=== PATIENT | male | born 1970 | race Caucasian/White ===

== ENCOUNTER → 2019-11-14 10:00 | Outpatient (BNVA) | payer MEDICARE, MEDICAID, SELFPAY | PROVIDERS: Family Provider Family Medicine; PCP Nurse Practitioner Family; Visit Provider Nurse Practitioner Family | DX: R56.9 Unspecified convulsions (principal); Z13.29 Encounter for screening for other suspected endocrine disorder; Z87.898 Personal history of other specified conditions; F33.1 Major depressive disorder, recurrent, moderate; Z79.899 Other long term (current) drug therapy | CPT/HCPCS: 80053; 80061; 80156; 80177; 84439; 84443 ==

== ENCOUNTER → 2020-10-17 08:44 | Outpatient (BNVA) | payer MEDICARE, MEDICAID, SELFPAY | PROVIDERS: Family Provider Family Medicine; PCP Nurse Practitioner Family; Visit Provider Nurse Practitioner Family | DX: R56.9 Unspecified convulsions (principal); F41.9 Anxiety disorder, unspecified; F32.9 Major depressive disorder, single episode, unspecified; Z79.899 Other long term (current) drug therapy | CPT/HCPCS: 80053; 80061; 80156; 80177 ==

== ENCOUNTER → 2021-11-24 09:52 | Outpatient (BNVA) | payer MEDICARE, MEDICAID, SELFPAY | PROVIDERS: Family Provider Family Medicine; PCP Nurse Practitioner Family; Visit Provider Nurse Practitioner Family | DX: R56.9 Unspecified convulsions (principal); E78.6 Lipoprotein deficiency; F41.9 Anxiety disorder, unspecified; F32.9 Major depressive disorder, single episode, unspecified; Z13.29 Encounter for screening for other suspected endocrine disorder; Z68.26 Body mass index [BMI] 26.0-26.9, adult; Z68.24 Body mass index [BMI] 24.0-24.9, adult | CPT/HCPCS: 80053; 80061; 80156; 80177; 84443 ==

== ENCOUNTER → 2022-08-04 09:51 | Outpatient (BNVA) | payer MEDICARE, MEDICAID, SELFPAY | PROVIDERS: Family Provider Family Medicine; PCP Nurse Practitioner Family; Visit Provider Nurse Practitioner Family | DX: R56.9 Unspecified convulsions (principal); F41.9 Anxiety disorder, unspecified; F32.9 Major depressive disorder, single episode, unspecified; Z68.26 Body mass index [BMI] 26.0-26.9, adult | CPT/HCPCS: 80156; 80177 ==

== ENCOUNTER → 2022-08-11 09:00 | Outpatient (BNVA) | payer MEDICARE, MEDICAID, SELFPAY | PROVIDERS: Family Provider Family Medicine; PCP Nurse Practitioner Family; Visit Provider Nurse Practitioner Family | DX: E78.6 Lipoprotein deficiency (principal); R56.9 Unspecified convulsions | CPT/HCPCS: 80053; 80061 ==

== ENCOUNTER → 2022-12-02 15:20 | Outpatient (BNVA) | payer MEDICARE, MEDICAID, SELFPAY | PROVIDERS: Family Provider Family Medicine; PCP Nurse Practitioner Family; Visit Provider Nurse Practitioner Family | DX: Z51.81 Encounter for therapeutic drug level monitoring (principal); Z79.899 Other long term (current) drug therapy; R56.9 Unspecified convulsions; R74.8 Abnormal levels of other serum enzymes; Z13.29 Encounter for screening for other suspected endocrine disorder | CPT/HCPCS: 80053; 80156; 80177 ==

== ENCOUNTER 2023-02-21 09:32 | Emergency (ER) | payer MEDICARE, MEDICAID, SELFPAY ==
[2023-02-21 09:42] VITALS: BP 94/72; PULSE 126; RESP 16; TEMP 36.6; O2SAT 98; BMI 25.4
[2023-02-21 09:49] VITALS: PULSE 120; RESP 20; O2SAT 98
--- NOTE | 2023-02-21 09:49 | USR_ITS ---
PROCEDURE INFORMATION: Exam: US Duplex Left Lower Extremity Veins, Limited Exam date and time: 02/21/2023 10:14 AM Age: 52 years old Clinical indication: Pain; Leg, lower; Left; Additional info: Leg pain and swelling TECHNIQUE: Imaging protocol: Real-time duplex ultrasound of the left extremity with 2-D courtney scale, color Doppler flow and spectral waveform analysis including responses to compression and other maneuvers (when performed) with image documentation. Limited exam focused on the left lower extremity veins. Total images: [id number] COMPARISON: No relevant prior studies available. FINDINGS: Left deep veins: Echogenic thrombus and noncompressible left common femoral vein and deep femoral vein. No venous flow detected by color Doppler. Findings consistent with deep venous thrombosis. Normal mid to distal left femoral vein with normal compressibility and venous flow demonstrated. Normal compressibility and venous flow demonstrated within left popliteal vein. Normal compressibility and venous flow noted in the left peroneal vein and posterior tibial vein. Superficial veins: Unremarkable. Saphenofemoral junction is patent without thrombus. Soft tissues: Minimal subcutaneous edema noted within the calf. Other findings: Noncompressibility of the greater saphenous vein in the groin suggesting superficial venous thrombosis present as well. US/[place] [id number] IMPRESSION: 1. Echogenic thrombus and noncompressible left common femoral vein and deep femoral vein. No venous flow detected by color Doppler. Findings consistent with deep venous thrombosis. 2. Noncompressibility of the greater saphenous vein in the groin suggesting superficial venous thrombosis present as well.
--- NOTE | 2023-02-21 09:49 | CTR_ITS ---
PROCEDURE INFORMATION: Exam: CT Lumbar Spine Without Contrast Exam date and time: 02/21/2023 10:50 AM Age: 52 years old Clinical indication: Injury or trauma; Fall; Blunt trauma (contusions or hematomas) TECHNIQUE: Imaging protocol: Computed tomography of the lumbar spine without contrast. Radiation optimization: All CT scans at this facility use at least one of these dose optimization techniques: automated exposure control; mA and/or kV adjustment per patient size (includes targeted exams where dose is matched to clinical indication); or iterative reconstruction. REPORTING DATA: Count of CT and Cardiac NM exams in prior 12 months: This patient has received 0 known CTs and 0 known cardiac nuclear medicine studies in the 12 months prior to the current study. COMPARISON: No relevant prior studies available. RADIATION DOSE METRICS: Total DLP (mGy-cm): 531.05 FINDINGS: Bones/joints: There is bilateral L3 and L5 spondylolysis and a slight L5-S1 spondylolisthesis measuring 4 mm. There is no evidence for acute fracture in the lumbar spine. There is mild lumbar spondylosis noted with disc bulging, facet arthropathy and ligamentous thickening but no significant canal narrowing. There is moderate neural foraminal stenosis at L3-L4, L4-L5 and moderate to severe stenosis at L5-S1. Vasculature: There is an infrarenal inferior vena cava filter noted. Patchy density is noted within the inferior vena cava above and below the filter extending into the iliac veins with retroperitoneal inflammatory change surrounding. Soft tissues: Unremarkable. CT/CT lumbar spine wo con* [id number] IMPRESSION: No evidence for acute lumbar fracture. L3 and L5 spondylolysis. Grade 1 L5-S1 spondylolisthesis. Lumbar spondylosis. Suspect cavoiliac thrombus. Inferior vena cava filter in place. Evaluation is limited on this noncontrast CT. Consider CT venogram to further assess.
--- NOTE | 2023-02-21 09:52 | CTR_ITS ---
PROCEDURE INFORMATION: Exam: CT Head Without Contrast Exam date and time: 02/21/2023 10:57 AM Age: 52 years old Clinical indication: Injury or trauma; Fall; Blunt trauma (contusions or hematomas) TECHNIQUE: Imaging protocol: Computed tomography of the head without contrast. Total images: 293 Radiation optimization: All CT scans at this facility use at least one of these dose optimization techniques: automated exposure control; mA and/or kV adjustment per patient size (includes targeted exams where dose is matched to clinical indication); or iterative reconstruction. REPORTING DATA: Count of CT and Cardiac NM exams in prior 12 months: This patient has received 0 known CTs and 0 known cardiac nuclear medicine studies in the 12 months prior to the current study. COMPARISON: No relevant prior studies available. RADIATION DOSE METRICS: Total DLP (mGy-cm): 1029.48 FINDINGS: Brain: Normal. No hemorrhage. Unremarkable white matter. No mass effect. Cerebral ventricles: No ventriculomegaly. Paranasal sinuses: Visualized sinuses are unremarkable. No fluid levels. Mastoid air cells: Visualized mastoid air cells are well aerated. Bones/joints: Unremarkable. No acute fracture. Soft tissues: Unremarkable. CT/CT head wo con* [id number] IMPRESSION: No acute intracranial pathology detected.
--- NOTE | 2023-02-21 09:52 | ECG_ITS ---
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 Measurements Intervals [place] Rate: 138 P: 60 NH: 146 QRS: 59 QRSD: 86 T: 50 QT: 261 QTc: 396 Interpretive Statements SINUS TACHYCARDIA POSSIBLE RIGHT VENTRICULAR CONDUCTION DELAY [RSR (QR) IN V1/V2] No previous ECG available for comparison Electronically Signed On 02-21-2023 22:52:41 CDT by Camden Hunt M.D. [email or web address]Artist Growthbolivar medical centerFree Flow Poweruniversity hospitals parma medical centerPruffi/store/OM/[id number]
--- NOTE | 2023-02-21 09:52 | XRR_ITS ---
PROCEDURE INFORMATION: Exam: XR Chest Exam date and time: 02/21/2023 11:24 AM Age: 52 years old Clinical indication: Cough and dyspnea; Smoker's cough; Additional info: Dyspnea/cough TECHNIQUE: Imaging protocol: Radiologic exam of the chest. Views: 1 view. Total images: 3 COMPARISON: No relevant prior studies available. FINDINGS: Lungs: Unremarkable. No consolidation. Pleural spaces: Unremarkable. No pleural effusion. No pneumothorax. Heart/Mediastinum: Unremarkable. No cardiomegaly. Bones/joints: Unremarkable. XR/XR chest 1V portable [id number] IMPRESSION: No acute findings.
--- NOTE | 2023-02-21 10:02 | W.ED.EXTPRO ---
HPI - Extremity Problem General: Chief complaint: Extremity Problem,Nontraumatic Stated complaint: fall, left leg injury Time Seen by Provider: 02/21/23 09:34 Source: patient Mode of arrival: ambulatory History of Present Illness: 52-year-old male presents to the emergency room he slipped and fell while in the shower 2 days ago he hit his head according to his mother who is here with him although he does not seem to remember this and he made no mention of it to me that his mother told me later. When he fell in the shower he injured his back and has had swelling in his legs since then and worsening pain radiating down the left leg. He has not had any particular shortness of breath or orthopnea. He denies any chest pain. He has had previous traumatic brain injuries. Swelling in his leg has persisted began later the same day after he had fallen he has no history of DVTs he is not on any anticoagulants. MD Complaint: extremity pain and extremity swelling Onset (ago): day(s) (2) Pain Consistency: constant Location: left and lower extremity Quality: aching Radiation: distal Relieving factors: nothing Exacerbating factors: nothing Associated symptoms: Deny chest pain or fever(s) Review of Systems Const: Denies: fever(s), chills, fatigue or malaise Card: Reports: edema and swelling of feet/ankles; Denies: chest pain, dyspnea on exertion or orthopnea Resp: Denies: dyspnea GI: Denies: abdominal pain : Denies: dysuria, urinary frequency or urinary urgency Musc: Reports: back pain (Chronic), extremity pain and extremity swelling; Denies: neck pain Skin/Breast: Denies: pruritus Neuro: Denies: headache(s) PFSH ED PFSH: Social History Smoking and tobacco status: current every day smoker e-cigarettes E-Cigarette Details: vaporizer device E-cig/vape details: 3 mg Alcohol intake: never Substance/Drug Use: never Physical Exam Const: GENERAL APPEARANCE: cooperative and comfortable ORIENTATION/CONSCIOUSNESS: Yes awake, Yes oriented to person, Yes oriented to place and Yes oriented to time HENMT: COMMON NORMALS: normocephalic, atraumatic and hearing grossly normal bilaterally HEAD & SCALP: normocephalic and atraumatic Resp: COMMON NORMALS: normal respiratory effort, No retractions, No use of accessory muscles and clear to auscultation bilaterally AUSCULTATION: clear to auscultation bilaterally Cardio: COMMON NORMALS: regular rate, regular rhythm and No murmurs present (Cardio) RATE: regular rate RHYTHM: regular rhythm GI: COMMON NORMALS: Soft to palpation and No hepatosplenomegaly present AUSCULTATION: Yes normoactive bowel sounds PALPATION: Yes Soft to palpation, No Tenderness to palpation present (GI), No Guarding due to palpation present (GI) and Yes No hepatosplenomegaly present Back/Pelvis: OTHER: No pain with palpation along lower spine Extremity: COMMON NORMALS: normal to inspection and capillary refill normal OTHER: Mild left calf tenderness +2 edema of the left lower extremity to the distal thigh. Dorsum plantar flex strength 5 of 5, extension at the knee strength 5 of 5 Neuro: SENSORIUM/ORIENTATION: Yes oriented to person, Yes oriented to place and Yes oriented to time DEEP TENDON REFLEXES: Right patellar reflex intensity grade: 0, Left patellar reflex intensity grade: 0, Right ankle reflex intensity grade: 1+ and Left ankle reflex intensity grade: 1+ OTHER: Straight leg raising negative Skin: COMMON NORMALS: no rashes or lesions noted GENERAL SKIN EXAM: no rashes or lesions noted Course Vital Signs: Vital signs: Vital Signs Temperature 97.9 F 02/21/23 09:42 Pulse Rate 93 02/21/23 12:06 Respiratory Rate 16 02/21/23 12:06 Blood Pressure 108/91 02/21/23 12:06 Pulse Oximetry 96 02/21/23 12:06 Oxygen Delivery Me thod Room Air 02/21/23 09:49 MDM - Extremity (Nontraumatic) Medical Decision Making Venous duplex lower extremity shows a DVT which clinically correlates with what exam is showing. He is not tachycardic and is not hypoxic. He does have an inferior vena cava filter that was placed after his previous trauma episodes is not been on any anticoagulation up till now. CT of his lumbar spine did not show any fractures that was done because of his complaint of back pain after the fall but there was a concern based on the CT of thrombus extending into the inferior vena cava, radiology recommended a venogram. I discussed with the patient he adamantly refuses. It actually took quite a bit of discussion to get the patient to agree to take the anticoagulation. His mother and father with him they assisted in trying to convince him of both the treatment and the testing but he opposed it. Because of his previous traumatic brain injuries he does have a conservator. The mother asked that I talk to her I did talk to her on the phone. At this point recommend that they just go with the anticoagulation until he agrees to further testing. His kidney function is a little bit above what it has been in the past. The treatment at this point would be anticoagulation he is not showing any signs of total inferior vena cava occlusion. If that were to occur would have to hopefully get him to reconsider his choices. At that point we may have to consider referral for possible mechanical thrombectomy however this is very invasive and would have significant risks associated with that. Patient does not want to undergo invasive procedures or take significant risks at this point. Advised the conservator I think since he is agreeing to take the Eliquis we should just proceed with that for now unless his symptoms change. Did discuss with the patient that if things worsen significantly we may have limited options at that time he expresses understanding of this and still does not wish to have any further testing done. Encouraged him that if he does change his mind he is welcome to return and we can reevaluate at any point. I did discuss with Dr. Watkins who is on-call for vascular he concurs with the treatment plan for this patient given the circumstances. Medical Records I reviewed the patient's medical records. Lab Data I reviewed the patient's lab results. 02/21/23 10:06 02/21/23 10:06 Radiology Impressions Lumbar Spine CT 02/21/23 09:49 IMPRESSION: No evidence for acute lumbar fracture. L3 and L5 spondylolysis. Grade 1 L5-S1 spondylolisthesis. Lumbar spondylosis. Suspect cavoiliac thrombus. Inferior vena cava filter in place. Evaluation is limited on this noncontrast CT. Consider CT venogram to further assess. Venous Duplex 02/21/23 09:49 IMPRESSION: 1. Echogenic thrombus and noncompressible left common femoral vein and deep femoral vein. No venous flow detected by color Doppler. Findings consistent with deep venous thrombosis. 2. Noncompressibility of the greater saphenous vein in the groin suggesting superficial venous thrombosis present as well. ADDENDUM: 02/21/23 4790 THIS REPORT CONTAINS FINDINGS THAT MAY BE CRITICAL TO PATIENT CARE. The findings were verbally communicated via telephone conference at 10:48 AM CDT on 02/21/2023 with JOSSE CALDWELL. The findings were acknowledged and understood. Chest X-Ray 02/21/23 09:52 IMPRESSION: No acute findings. Head CT 02/21/23 09:52 IMPRESSION: No acute intracranial pathology detected. Laboratory Results WBC 15.77 10^3/uL (3.29-11.43) H 02/21/23 10:06 RBC 4.47 10^6/uL (3.85-5.65) 02/21/23 10:06 Hgb 14.30 g/dL (11.27-16.99) 02/21/23 10:06 Hct 43.9 % (37-53) 02/21/23 10:06 MCV 98.2 fl (82-101) 02/21/23 10:06 MCH 32.0 pg (27-33) 02/21/23 10:06 MCHC 32.6 g/dL (30-55) 02/21/23 10:06 RDW 12.3 % (12.1-15.1) 02/21/23 10:06 Plt Count 188 10^3/cmm (157-399) 02/21/23 10:06 MPV 9.9 fL (7.4-10.4) 02/21/23 10:06 Neut % (Auto) 85.4 % 02/21/23 10:06 Lymph % (Auto) 6.3 % 02/21/23 10:06 [place] % (Auto) 6.3 % 02/21/23 10:06 Eos % (Auto) 0.3 % 02/21/23 10:06 Baso % (Auto) 0.6 % 02/21/23 10:06 Neut # (Auto) 13.47 10^3/uL (1.8-7.7) H 02/21/23 10:06 Lymph # (Auto) 1.0 10^3/uL (0.8-4.8) 02/21/23 10:06 [place] # (Auto) 1.0 10^3/uL (0.2-0.9) H 02/21/23 10:06 Eos # (Auto) 0.0 10^3/uL (0.0-0.8) 02/21/23 10:06 Baso # (Auto) 0.1 10^3/uL (0.0-0.1) 02/21/23 10:06 Nucleated RBC % (auto) 0 % 02/21/23 10:06 Nucleated RBCs # 0.0 /100WBC 02/21/23 10:06 Sodium 141 mmol/L (136-145) 02/21/23 10:06 Potassium 3.9 mmol/L (3.5-5.1) 02/21/23 10:06 Chloride 105 mmol/L (98-107) 02/21/23 10:06 Carbon Dioxide 25 mmol/L (22-29) 02/21/23 10:06 Anion Gap 14.9 (5-19) 02/21/23 10:06 BUN 18 mg/dL (6-20) 02/21/23 10:06 Creatinine 1.5 mg/dL (0.7-1.2) H 02/21/23 10:06 GFR Calculation 49.0 mL/min (90-130) L 02/21/23 10:06 Glucose 92 mg/dL (65-115) 02/21/23 10:06 Calculated Osmolality 294 mOsm/kg (285-295) 02/21/23 10:06 Calcium 8.8 mg/dL (8.5-10.5) 02/21/23 10:06 Total Bilirubin 0.5 mg/dL (0.15-1.2) 02/21/23 10:06 AST 37 U/L (0-40) 02/21/23 10:06 ALT 35 U/L (0-41) 02/21/23 10:06 Alkaline Phosphatase 171 U/L (40-130) H 02/21/23 10:06 NT-Pro-B Natriuret Pep 210 pg/mL (0-125) H 02/21/23 10:06 Total Protein 7.7 g/dL (6.6-8.7) 02/21/23 10:06 Albumin 4.2 g/dL (3.5-5.2) 02/21/23 10:06 Globulin 3.5 g/dL (1.3-4.6) 02/21/23 10:06 Urine Color Dark yellow (Yellow) 02/21/23 11:43 Urine Appearance Hazy (CLEAR) A 02/21/23 11:43 Urine pH 5 (5-7) 02/21/23 11:43 Ur Specific [place] 1.020 (1.005-1.030) 02/21/23 11:43 Urine Protein 1+ (Negative) H 02/21/23 11:43 Urine Glucose (UA) Norm (Normal) 02/21/23 11:43 Urine Ketones Negative (Negative) 02/21/23 11:43 Urine Blood Neg (Negative) 02/21/23 11:43 Urine Nitrate Negative (Negative) 02/21/23 11:43 Urine Bilirubin 1+ (Negative) H 02/21/23 11:43 Urine Urobilinogen 1 mg/dL (Negative) H 02/21/23 11:43 Ur Leukocyte Esterase Trace (Negative) H 02/21/23 11:43 Urine RBC 0-4 /hpf (0-2) H 02/21/23 11:43 Urine WBC 5-10 /hpf (0-5) H 02/21/23 11:43 Ur Squamous Epith Cells 0-4 /hpf (0-5) H 02/21/23 11:43 Amorphous Sediment 1+ /hpf 02/21/23 11:43 Urine Bacteria Trace /hpf (NONE) 02/21/23 11:43 Hyaline Casts 10-15 /lpf H 02/21/23 11:43 Urine Mucus 4+ /hpf 02/21/23 11:43 All radiology interpretation(s) finalized by discharge Discharge Plan Discharge Patient Disposition: Home Clinical Impression: Deep vein thrombosis of lower extremity, Thrombosis of inferior vena cava Condition: Stable Prescriptions: New Korin DVT-PE Treat 30D Start 5 mg (74 tabs) tablets,dose pack See Rx Instructions .ROUTE .COMPLEX Qty: 74 0RF Rx Instructions: orally per package directions No Action ibuprofen 200 mg capsule 600 mg PO Q8H PRN (Reason: pain) carbamazepine 200 mg tablet 200 mg PO BID@ levetiracetam 750 mg tablet 750 mg PO BID@ fluticasone propionate 50 mcg/actuation spray,suspension 1 spray intranasal DAILY PRN (Reason: Allergy Symptoms) Discharge Orders: Discharge ED (Routine); Ordered 02/21/23 Ordered By: Josse Caldwell Referrals: Lizy Gooden NP [Primary Care Provider] - Discharge Diet: Usual diet Discharge Activity: Increase activity as tolerated Patient Instructions: Apixaban (By mouth) (Eliquis), Deep Vein Thrombosis (ED), Opioid Safety, Pain Management Activity Restrictions/Additional Instructions: You were seen today for left leg swelling. Imaging done today in the emergency room shows a DVT of your left leg that appears to extend into the inferior vena cava. You declined further testing so we could not confirm. The inferior vena cava filter will likely be helpful and the blood thinner that we prescribed today is critically important. Should you reconsider further imaging would strongly encourage you to return to the emergency room or follow-up with your primary care doctor for further evaluation and treatment. We would be happy to see you in further evaluate if you wish and return to the emergency room. You will need to stay on the blood thinner continuously until told by a physician to stop it. You should see your primary care provider for refills on the blood thinner medication. Coding Level of Care Code ED Densitometrist for Niels Dunham
[2023-02-21 10:24] LABS: Basophils # 0.1 10^3/uL (0.0-0.1); Basophils % 0.6 %; Eosinophils % 0.3 %; Hematocrit 43.9 % (37-53); Lymphocytes % 6.3 %; Mean Corpuscular HGB Conc 32.6 g/dL (30-55); Mean Corpuscular Volume 98.2 fl (82-101); Mean Platelet Volume 9.9 fL (7.4-10.4); Monocytes % 6.3 %; Neutrophils # 13.47 10^3/uL (1.8-7.7); Neutrophils % 85.4 %; Nucleated Red Blood Cells % 0 %; Platelet Count 188 10^3/cmm (157-399); Red Blood Count 4.47 10^6/uL (3.85-5.65); Red Cell Distribution Width 12.3 % (12.1-15.1); White Blood Count 15.77 10^3/uL (3.29-11.43)
--- NOTE | 2023-02-21 10:39 | PC.NURSE ---
RN AT BEDSIDE TO ATTEMPT TO PLACE IV. PATIENT REFUSED TO ALLOW RN TO PLACE IV. NOTIFIED.
[2023-02-21 11:06] LABS: Alanine Aminotransferase 35 U/L (0-41); Albumin Level 4.2 g/dL (3.5-5.2); Alkaline Phosphatase 171 U/L (40-130); Anion Gap 14.9 (5-19); Aspartate Amino Transferase 37 U/L (0-40); Blood Urea Nitrogen 18 mg/dL (6-20); Calcium 8.8 mg/dL (8.5-10.5); Carbon Dioxide 25 mmol/L (22-29); Chloride 105 mmol/L (98-107); Globulin 3.5 g/dL (1.3-4.6); Glucose 92 mg/dL (65-115); NT Pro B Type Natriuretic Pept 210 pg/mL (0-125); Osmolality Calculated 294 mOsm/kg (285-295); Potassium 3.9 mmol/L (3.5-5.1); Sodium 141 mmol/L (136-145); Total Bilirubin 0.5 mg/dL (0.15-1.2); Total Protein 7.7 g/dL (6.6-8.7)
[2023-02-21] MEDS: enoxaparin 80 mg/0.8 mL Syringe SUBCUT (11:19)
[2023-02-21 11:21] VITALS: BP 113/75; PULSE 101; RESP 18; O2SAT 95
[2023-02-21 12:06] VITALS: BP 108/91; PULSE 93; RESP 16; O2SAT 96
[2023-02-21 12:13] LABS: Add Urine Microscopic? YES; Bilirubin Urine 1+ (Negative); Blood Urine Neg (Negative); Glucose Urine UA Norm (Normal); Ketones Urine Negative (Negative); Leukocyte Esterase Urine Trace (Negative); Nitrate Urine Negative (Negative); Protein Urine 1+ (Negative); Urine Appearance Hazy (CLEAR); Urine Color Dark Yellow (Yellow); Urobilinogen Urine 1 mg/dL (Negative); pH Urine 5 (5-7)
[2023-02-21 12:14] LABS: Add Urine Culture? No; Amorphous Sediment Urine 1+ /hpf; Bacteria Urine TRACE /hpf; Mucus Urine 4+ /hpf; RBC Urine 0-4 /hpf (0-2); Squamous Epithelial Cell Urine 0-4 /hpf (0-5)
[2023-02-21 12:51] VITALS: BP 129/80; PULSE 100; RESP 17; O2SAT 97
== END 2023-02-21 12:58 | disposition home or self-care (01) ==
PROVIDERS: Emergency Provider Family Medicine; PCP Nurse Practitioner Family
DX: I82.412 Acute embolism and thrombosis of left femoral vein (principal); I82.220 Acute embolism and thrombosis of inferior vena cava; M43.17 Spondylolisthesis, lumbosacral region; M47.816 Spondylosis without myelopathy or radiculopathy, lumbar region; F17.290 Nicotine dependence, other tobacco product, uncomplicated
CPT/HCPCS: 36415; 70450; 71045; 72131; 80053; 81001; 83880; 85025; 93005; 93971; 96372; 99285; J1650